=== PATIENT | male | born 1965 | race Two or more races ===

== ENCOUNTER 2016-07-21 13:07 | Inpatient (IN) | payer SELFPAY ==
[~2016-07-21] VITALS: Ht 177.8 cm; Wt 76.8 kg
[2016-07-21] VITALS (29 sets, daily range): BP systolic 91–140; BP diastolic 31–82
[2016-07-21] MEDS ORDERED: ATROPINE SULF 0.5 MG/5ML SYR ONE ×2 (13:18→13:37)
[2016-07-21] MEDS ORDERED: HEPARIN SODIUM (PORCINE) 5000 UNITS/ML 1ML VIAL ONE ×2 (13:18→13:19)
[2016-07-21] MEDS ORDERED: ASPirin 81 mg TAB ONE (13:20)
[2016-07-21] MEDS ORDERED: ANGIOMAX 250 MG VIAL IV ONE (13:22)
[2016-07-21] MEDS ORDERED: fentaNYL CITRATE 100 MCG/2 ML VL ONE (13:22)
[2016-07-21] MEDS ORDERED: SODIUM CHL 0.9% 50 ML ONE (13:23)
[2016-07-21] MEDS ORDERED: MIDAZOLAM HCL 1MG/1ML-2 ML VIAL ONE (13:23)
[2016-07-21] MEDS ORDERED: EPTIFIBATIDE INJ (2MG/ML) 10ML VIAL IV ONE ×2 (13:23→13:54)
[2016-07-21] MEDS ORDERED: LIDOCAINE 2%HCL (LOCAL ANESTH.) INJ 20ML MDV ONE (13:26)
[2016-07-21] MEDS ORDERED: IODIXANOL 320MG/ML 100ML BTL IV ONE (13:26)
[2016-07-21] MEDS ORDERED: DOPamine 1600MCG/ML 250 ML IV ONE (13:40)
[2016-07-21] MEDS ORDERED: HEPARIN SODIUM (PORCINE) 5000 UNITS/ML 1ML VIAL IV ONE (13:45)
[2016-07-21] MEDS ORDERED: SODIUM CHLORIDE 0.9% 1,000 ML IV ONE (13:45)
[2016-07-21] MEDS ORDERED: ASPirin 325 MG TAB PO ONE (13:45)
[2016-07-21] MEDS ORDERED: ONDANSETRON HCL 4 MG/2 ML VIAL ONE (13:46)
[2016-07-21] MEDS ORDERED: AMIODARONE HCL (50 MG/ ML) 3 ML VIAL IV ONE (13:52)
[2016-07-21] MEDS ORDERED: EPTIFIBATIDE DRIP(0.75MG/ML) 100 ML IV ONE ×2 (14:04→14:45)
[2016-07-21] MEDS ORDERED: PRASUGREL HCL 10 MG TAB ONE (14:05)
[2016-07-21] MEDS ORDERED: FUROSEMIDE 20 MG/2 ML VIAL ONE (14:41)
[2016-07-21] MEDS: DOPamine 1600MCG/ML 250 ML IV SCH (14:45)
[2016-07-21] MEDS ORDERED: PRASUGREL HCL 10 MG TAB PO ONE (14:45)
[2016-07-21] MEDS ORDERED: NITROGLYCERIN 0.4 MG SL TAB SL PRN ×2 (14:45)
[2016-07-21] MEDS ORDERED: ONDANSETRON HCL 4 MG/2 ML VIAL IV PRN (14:45)
[2016-07-21] MEDS ORDERED: MORPHINE SULF INJ 2 MG/ML SYRINGE 1ML IV PRN ×3 (14:45)
[2016-07-21] MEDS ORDERED: FUROSEMIDE 40 MG/4 ML VIAL IV ONE (14:45)
[2016-07-21] MEDS: FUROSEMIDE 20 MG/2 ML VIAL IV SCH (14:45)
[2016-07-21 15:11] LABS: Lactic Acid w/Reflex 4.9 mmol/L (0.4-2.0)
[2016-07-21 15:14] LABS: REFLEX LACTIC ACID YES OR NO YES
[2016-07-21] MEDS ORDERED: ceFAZolin 1GM/50ML D5W 50 ML IV ONE (15:15)
[2016-07-21 15:31] LABS: Basophils # (auto) 0 uL; Basophils % (auto) 0.3 % (0.0-2.0); Eosinophils # (auto) 0.2 uL; Eosinophils % (auto) 1.6 % (0.0-7.0); Hematocrit 36.1 % (41.0-53.0); Hemoglobin 12.2 g/dL (13.5-17.5); Lymphocytes # (auto) 2.9 uL; Lymphocytes % (auto) 30.9 % (10.0-50.0); Mean Corpuscular Hgb Conc. 33.7 g/dL (32.0-36.0); Mean Corpuscular Volume 86.2 fL (80.0-100.0); Mean Platelet Volume 8.9 fL (7.4-10.4); Monocytes # (auto) 0.7 uL; Monocytes % (auto) 7.5 % (0.0-12.0); Neutrophils # (auto) 5.6 uL; Neutrophils % (auto) 59.7 % (37.0-80.0); Platelet Count (auto) 282 10^3/uL (140-450); Red Cell Distribution Width 14.3 % (11.6-16.0); White Blood Cell 9.4 10^3/uL (4.4-10.8)
[2016-07-21 15:45] LABS: Anion Gap 13 (5-15); BUN/Creatinine Ratio 12.6; Blood Urea Nitrogen 16 mg/dL (7-18); Calcium 8.9 mg/dL (8.5-10.1); Carbon Dioxide 20 mmol/L (21-32); Chloride 107 mmol/L (98-107); GFR African American 77 mL/min; GFR Non-African American 63 mL/min; Glucose 334 mg/dL (74-106); Potassium 4.2 mmol/L (3.5-5.1); Sodium 140 mmol/L (136-145)
[2016-07-21] MEDS ORDERED: ASPI325T4 PO (17:31)
[2016-07-21] MEDS ORDERED: METF-312 PO (17:31)
[2016-07-21] MEDS ORDERED: CLOP75TA41 PO (17:31)
[2016-07-21] MEDS ORDERED: SIMV-13 PO (17:31)
[2016-07-21] MEDS ORDERED: LISI2.5T47 PO (17:31)
[2016-07-21] MEDS: ACCU-CHEK COMFORT CURVE STRIP VI SCH ×2 (17:54→21:58)
[2016-07-21] MEDS: InsuLIN REG 1unit/0.01ml Soln (100units/ml) SC SCH (17:55)
[2016-07-21] MEDS ORDERED: DEXTROSE (50%) 50ML SYRG IV PRN (18:00)
[2016-07-21] MEDS ORDERED: PNEUMOCOCCAL VACC POLYS 25 MCG/0.5 ML VIAL IM ONE (18:00)
[2016-07-21] MEDS: ATORVASTATIN 20 MG TAB PO SCH (21:58)
[2016-07-21] MEDS ORDERED: InsuLIN REG 1unit/0.01ml Soln (100units/ml) SC SCH (22:00)
[2016-07-22] VITALS (93 sets, daily range): BP systolic 82–127; BP diastolic 36–85
[2016-07-22] MEDS: DOPamine 1600MCG/ML 250 ML IV SCH (04:24)
[2016-07-22] MEDS: InsuLIN REG 1unit/0.01ml Soln (100units/ml) SC SCH ×4 (06:41→22:11)
[2016-07-22 07:02] LABS: Basophils # (auto) 0 uL; Basophils % (auto) 0.2 % (0.0-2.0); Eosinophils # (auto) 0 uL; Eosinophils % (auto) 0.2 % (0.0-7.0); Hematocrit 44.8 % (41.0-53.0); Hemoglobin 15.4 g/dL (13.5-17.5); Lymphocytes # (auto) 2.7 uL; Lymphocytes % (auto) 16.3 % (10.0-50.0); Mean Corpuscular Hemoglobin 29.2 pg (28.0-32.0); Mean Corpuscular Hgb Conc. 34.5 g/dL (32.0-36.0); Mean Corpuscular Volume 84.8 fL (80.0-100.0); Mean Platelet Volume 8.1 fL (7.4-10.4); Monocytes # (auto) 1.4 uL; Monocytes % (auto) 8.4 % (0.0-12.0); Neutrophils # (auto) 12.3 uL; Neutrophils % (auto) 74.9 % (37.0-80.0); Platelet Count (auto) 353 10^3/uL (140-450); Red Cell Distribution Width 14.4 % (11.6-16.0); White Blood Cell 16.4 10^3/uL (4.4-10.8)
[2016-07-22 07:26] LABS: Albumin 3.3 g/dL (3.4-5.0); BUN/Creatinine Ratio 20.2; Calcium 8.9 mg/dL (8.5-10.1); Potassium 3.6 mmol/L (3.5-5.1)
[2016-07-22 07:28] LABS: Bilirubin, Total 0.7 mg/dL (0.2-1.0)
[2016-07-22] MEDS ORDERED: CLOPIDOGREL 300 MG TAB PO ONE (08:00)
[2016-07-22] MEDS ORDERED: PRASUGREL HCL 10 MG TAB PO SCH (10:00)
[2016-07-22] MEDS: FUROSEMIDE 20 MG/2 ML VIAL IV SCH (10:00)
[2016-07-22] MEDS ORDERED: ASPirin-EC 81 mg tab PO ONE (11:00)
[2016-07-22] MEDS ORDERED: DEXTROSE (50%) 50ML SYRG IV PRN (11:00)
[2016-07-22] MEDS ORDERED: InsuLIN REG 1unit/0.01ml Soln (100units/ml) SC SCH (11:30)
[2016-07-22] MEDS: ACCU-CHEK COMFORT CURVE STRIP VI SCH ×5 (11:36→21:58)
[2016-07-22] MEDS: ATORVASTATIN 20 MG TAB PO SCH ×2 (21:51→22:11)
[2016-07-23] VITALS (58 sets, daily range): BP systolic 86–116; BP diastolic 42–77
[2016-07-23] MEDS: DOPamine 1600MCG/ML 250 ML IV SCH (00:22)
[2016-07-23 04:18] LABS: Basophils # (auto) 0 uL; Basophils % (auto) 0.3 % (0.0-2.0); Eosinophils # (auto) 0.2 uL; Eosinophils % (auto) 1.3 % (0.0-7.0); Hematocrit 45.8 % (41.0-53.0); Hemoglobin 15.3 g/dL (13.5-17.5); Lymphocytes # (auto) 2.2 uL; Lymphocytes % (auto) 18.4 % (10.0-50.0); Mean Corpuscular Hemoglobin 29.2 pg (28.0-32.0); Mean Corpuscular Hgb Conc. 33.4 g/dL (32.0-36.0); Mean Corpuscular Volume 87.3 fL (80.0-100.0); Mean Platelet Volume 8.5 fL (7.4-10.4); Monocytes # (auto) 1.1 uL; Monocytes % (auto) 9.5 % (0.0-12.0); Neutrophils # (auto) 8.3 uL; Neutrophils % (auto) 70.5 % (37.0-80.0); Platelet Count (auto) 337 10^3/uL (140-450); Red Cell Distribution Width 14.4 % (11.6-16.0); White Blood Cell 11.7 10^3/uL (4.4-10.8)
[2016-07-23 05:00] LABS: BUN/Creatinine Ratio 19.5; Calcium 8.6 mg/dL (8.5-10.1); Magnesium 2.2 mg/dL (1.6-2.6); Potassium 3.3 mmol/L (3.5-5.1)
[2016-07-23] MEDS: InsuLIN REG 1unit/0.01ml Soln (100units/ml) SC SCH ×4 (06:15→21:51)
[2016-07-23] MEDS: ACCU-CHEK COMFORT CURVE STRIP VI SCH ×4 (06:15→21:50)
[2016-07-23] MEDS: CLOPIDOGREL BISULFATE 75 MG TAB PO SCH (09:56)
[2016-07-23] MEDS: ASPirin-EC 81 mg tab PO SCH (09:56)
[2016-07-23] MEDS: FUROSEMIDE 20 MG/2 ML VIAL IV SCH (09:57)
[2016-07-23] MEDS ORDERED: POTASSIUM CHL 20 Meq TABLET PO ONE (10:45)
[2016-07-23] MEDS ORDERED: ASP81EC PO (11:27)
[2016-07-23] MEDS ORDERED: ATO40T PO (11:29)
[2016-07-23] MEDS ORDERED: LISINOPRIL 5 MG TAB PO ONE (11:30)
[2016-07-23] MEDS: CARVEDILOL 3.125 MG TAB PO SCH ×2 (11:44→22:21)
[2016-07-23] MEDS ORDERED: INSULIN DETEMIR(LEVEMIR) 1unit/0.01ml Soln (100units/ml) SC SCH (22:00)
[2016-07-23] MEDS ORDERED: ATORVASTATIN 20 MG TAB PO SCH (22:00)
[2016-07-24 00:23] VITALS: BP 97/59
[2016-07-24 05:45] VITALS: BP 90/52
[2016-07-24 06:40] LABS: Basophils # (auto) 0 uL; Basophils % (auto) 0.3 % (0.0-2.0); Eosinophils # (auto) 0.2 uL; Eosinophils % (auto) 2.3 % (0.0-7.0); Hematocrit 44.8 % (41.0-53.0); Hemoglobin 15.1 g/dL (13.5-17.5); Lymphocytes # (auto) 2.5 uL; Lymphocytes % (auto) 26.2 % (10.0-50.0); Mean Corpuscular Hgb Conc. 33.7 g/dL (32.0-36.0); Mean Corpuscular Volume 85.9 fL (80.0-100.0); Mean Platelet Volume 8.7 fL (7.4-10.4); Monocytes # (auto) 0.9 uL; Monocytes % (auto) 9.5 % (0.0-12.0); Neutrophils # (auto) 5.9 uL; Neutrophils % (auto) 61.7 % (37.0-80.0); Platelet Count (auto) 334 10^3/uL (140-450); Red Cell Distribution Width 14.7 % (11.6-16.0); White Blood Cell 9.6 10^3/uL (4.4-10.8)
[2016-07-24] MEDS: ACCU-CHEK COMFORT CURVE STRIP VI SCH ×3 (06:47→17:00)
[2016-07-24] MEDS: InsuLIN REG 1unit/0.01ml Soln (100units/ml) SC SCH ×3 (06:48→17:00)
[2016-07-24 06:57] LABS: BUN/Creatinine Ratio 16.1; Calcium 8.8 mg/dL (8.5-10.1); Potassium 3.9 mmol/L (3.5-5.1)
[2016-07-24] MEDS ORDERED: CAR3125T PO (08:29)
[2016-07-24] MEDS ORDERED: LISI-275 PO (08:29)
[2016-07-24] MEDS ORDERED: CLOP75TA28 PO (08:29)
[2016-07-24 09:00] VITALS: BP 98/63
[2016-07-24] MEDS ORDERED: METF-312 PO (09:48)
[2016-07-24] MEDS ORDERED: SITA100T7 PO (09:48)
[2016-07-24] MEDS ORDERED: FUROSEMIDE 20 MG TAB PO SCH (10:00)
[2016-07-24] MEDS ORDERED: LISINOPRIL 5 MG TAB PO SCH (10:00)
[2016-07-24] MEDS: CLOPIDOGREL BISULFATE 75 MG TAB PO SCH (11:09)
[2016-07-24] MEDS: ASPirin-EC 81 mg tab PO SCH (11:09)
[2016-07-24] MEDS: CARVEDILOL 3.125 MG TAB PO SCH (11:10)
[2016-07-24 13:00] VITALS: BP 103/62
[2016-07-24 13:58] VITALS: BP 103/62
== END 2016-07-24 17:03 | disposition home or self-care (01) | DRG 246 ==
LOC: ER 13:07 → CATH 13:20 → ICU WEST 13:21 → TELE-CENTR 07-23 23:50
PROVIDERS: ADMIT Internal Medicine; ATTEND Internal Medicine
PROC: 027034Z Dilation of Coronary Artery, One Artery with Drug-eluting Intraluminal Device, Percutaneous Approach (ICD-10-PCS; principal; 2016-07-21)
PROC: B41J1ZZ Fluoroscopy of Other Lower Arteries using Low Osmolar Contrast (ICD-10-PCS; 2016-07-21)
PROC: 02C03ZZ Extirpation of Matter from Coronary Artery, One Artery, Percutaneous Approach (ICD-10-PCS; 2016-07-21)
PROC: B2111ZZ Fluoroscopy of Multiple Coronary Arteries using Low Osmolar Contrast (ICD-10-PCS; 2016-07-21)
PROC: B2151ZZ Fluoroscopy of Left Heart using Low Osmolar Contrast (ICD-10-PCS; 2016-07-21)
PROC: 4A023N7 Measurement of Cardiac Sampling and Pressure, Left Heart, Percutaneous Approach (ICD-10-PCS; 2016-07-21)
DX: T82.867A Thrombosis due to cardiac prosthetic devices, implants and grafts, initial encounter (principal); I21.09 ST elevation (STEMI) myocardial infarction involving other coronary artery of anterior wall; I50.21 Acute systolic (congestive) heart failure; R57.0 Cardiogenic shock; E11.9 Type 2 diabetes mellitus without complications; E78.5 Hyperlipidemia, unspecified; I11.0 Hypertensive heart disease with heart failure; I25.10 Atherosclerotic heart disease of native coronary artery without angina pectoris; D72.829 Elevated white blood cell count, unspecified; Y83.1 Surgical operation with implant of artificial internal device as the cause of abnormal reaction of the patient, or of later complication, without mention of misadventure at the time of the procedure; Z91.19 Patient's noncompliance with other medical treatment and regimen; I25.2 Old myocardial infarction; Z23 Encounter for immunization
CPT/HCPCS: 36415; 71010; 80048; 80053; 80061; 82565; 82962; 83036; 83605; 83735; 84484; 85025; 86850; 86900; 86901; 87081; 92920; 93005; 93306; 93970; 96365; 96375; 97001; 99152; J0461; J0690; J1815; J2250; J2405; Q9967